=== PATIENT | female | born 1995 ===

== ENCOUNTER → 2021-05-21 13:51 | Outpatient (CLI) | payer MEDICAID, SELFPAY ==
--- NOTE | ~2021-05-21 | US_ITS ---
EXAMINATION: US OB <= 14 weeks fetus DATE: 05/21/2021 14:33 INDICATION: Previously with inconclusive viability. TECHNIQUE: Real-time transabdominal pelvic ultrasound was performed. COMPARISON: None. FINDINGS: The uterus measures 17.9 x 9.4 x 12.6 cm. There is an intrauterine gestational sac. The crown r ump length measures 6.4 cm, which correlates with an estimated gestational age of 12 weeks and 5 day( s) (+/-) 1 week(s) and 1 day(s). heart motion is not identified by M-mode Doppler. The ovaries are not visualized. There is no free fluid in the pelvis. IMPRESSION: 1. demise. Reviewed, dictated and finalized at location A. IMPRESSION: 1. demise.
== END ==
PROVIDERS: Visit Provider Obstetrics & Gynecology
DX: O36.80X9 Pregnancy with inconclusive fetal viability, other fetus (principal); O02.1 Missed abortion
CPT/HCPCS: 76801